=== PATIENT | female | born 1950 | race Caucasian/White ===

== ENCOUNTER 2024-01-25 17:53 | Emergency (ER) | payer MEDICARE, BC ==
[2024-01-25 19:37] VITALS: BP 140/84; PULSE 79
[2024-01-25] MEDS: Sodium Chloride 0.9% 1,000 ML IV SCH (19:39)
[2024-01-25] MEDS: Ketorolac 15 MG/ML SDV IVPUSH ONE (20:37)
== END 2024-01-25 20:55 | disposition home or self-care (01) ==
LOC: JP.ED 17:53
DX: C85.93 Non-Hodgkin lymphoma, unspecified, intra-abdominal lymph nodes (principal); G44.229 Chronic tension-type headache, not intractable; E78.00 Pure hypercholesterolemia, unspecified; E03.9 Hypothyroidism, unspecified; Z79.899 Other long term (current) drug therapy; Z79.890 Hormone replacement therapy
CPT/HCPCS: 74176; 96361; 96374; 99284; J1885; J7030